=== PATIENT | male | born 1945 | race Caucasian/White ===

== ENCOUNTER 2016-08-18 15:16 | Outpatient (CLI) | payer MEDICARE, BC ==
--- NOTE | 2016-08-18 20:22 | RAD ---
LUMBAR SPINE THREE VIEWS: Date: 08-18-16 FINDINGS: A degenerated disc with disc space narrowing is seen at L5-S1. An MRI or CT would be needed to asse ss if there is any disc protrusion and neural impingement. Additionally, there is slight disc space narrowing at L4-5. Small anterior osteophytes are seen at most levels. There is some mild anterio r wedging of T11 and T12 vertebral bodies which is likely chronic. Facet arthritis is present at L4 and below for sure. On the AP view there is a rounded crescentic density to the left of the lower lumbar spine. A large aortic aneurysm is suspected, probably approaching 6 cm in size. It is difficult to see it exactly on the lateral view. Further studies are definitely needed, such as either ultrasound or CT to inv estigate it. IMPRESSION: 1. Probable large infrarenal abdominal aortic aneurysm. This may measure up to 6 cm in size. Ultr asound or CT required. 2. Degenerative disc disease at L5-S1 and disc space narrowing as well at L4-5. 3. Facet arthritis, particularly in the lower lumbar levels. Code T POS: HOME
== END 2016-08-18 15:17 | disposition home or self-care (01) ==
LOC: BURRAD 15:16
PROVIDERS: ATTEND Physician Assistant
DX: R20.8 Other disturbances of skin sensation (principal)
CPT/HCPCS: 72100

== ENCOUNTER 2016-08-18 15:25 | Outpatient (CLI) | payer MEDICARE, BC ==
[2016-08-18 15:46] LABS: #Basophils 0.1 thou/uL (0.0-0.2); #Eosinphils 0.3 thou/uL (0.0-0.7); #Lymphocytes 2.5 thou/uL (1.20-3.40); #Monocytes 0.9 thou/uL (0.11-0.59); #Neutrophils 6.4 thou/uL (1.40-6.50); %Basophils 0.9 % (0.0-1.0); %Eosinophils 2.5 % (0.0-10.0); Mean Platelet Volume 10.5 fL (7.4-10.4); Red Blood Cell (RBC) Count 4.93 mill/uL (4.70-6.10); White Blood Cell (WBC) Count 10.1 thou/uL (4.8-10.8)
[2016-08-18 15:57] LABS: ALT (SGPT) 13 U/L (0-55); AST (SGOT) 15 U/L (5-34); Alkaline Phosphatase 85 U/L (40-150); Anion Gap 14 mmol/L (10-20); BUN (Urea Nitrogen) 16 mg/dL (8.4-25.7); Bilirubin, Total 0.5 mg/dL (0.2-1.2); Calc. Creatinine Clearance 0 mL/min (70-130); Calcium 9.1 mg/dL (7.8-10.44); Carbon Dioxide 26 mmol/L (23-31); Chloride 105 mmol/L (98-107); Estimated GFR-MDRD 62; Globulin 2.9 g/dL (2.4-3.5); LDL Cholesterol, Calculated 148 mg/dL
== END 2016-08-18 15:26 | disposition home or self-care (01) ==
LOC: HPCALD 15:25
PROVIDERS: ATTEND Physician Assistant
DX: I70.90 Unspecified atherosclerosis (principal); R20.8 Other disturbances of skin sensation; I10 Essential (primary) hypertension
CPT/HCPCS: 36415; 72100; 80053; 80061; 84443; 85025

== ENCOUNTER 2016-08-20 14:33 | Outpatient (CLI) | payer MEDICARE, BC ==
--- NOTE | 2016-08-20 23:18 | ULT ---
ABDOMINAL ULTRASOUND 08/20/16 Ultrasonography of the abdomen was performed for evaluation of a possible abdominal aortic aneurysm that was questioned on a recent plain film of the lumbar spine. Documentary images and worksheets we re provided and reviewed. There is indeed an aneurysm of the distal abdominal aorta. It measures 4.0 cm in AP diameter and 4.6 cm in transverse diameter. Its length is approximately 7.7 cm. As best as I can tell, it does not e xtend beyond the bifurcation of the aorta. The liver size measures normal, though the total volume seems slightly generous. Internally, it appe ars normal. The gallbladder contains no stones or wall thickening. The common bile duct is borderlin e in size at 6 mm. The spleen is normal in size. The pancreas was mostly obscured by gas. The right kidney was 9.5 cm long and the left kidney was 10.0 cm. No mass or hydronephrosis was seen in either. IMPRESSION: 4.6 cm wide abdominal aortic aneurysm, lower aorta. POS: HOME
== END 2016-08-20 14:34 | disposition home or self-care (01) ==
LOC: BURULT 14:33
PROVIDERS: ATTEND Physician Assistant
DX: I71.4 Abdominal aortic aneurysm, without rupture (principal)
CPT/HCPCS: 76700

== ENCOUNTER 2016-09-25 10:19 | Outpatient (CLI) | payer MEDICARE, BC ==
[2016-09-25 11:57] LABS: Anion Gap 14 mmol/L (10-20); BUN (Urea Nitrogen) 17 mg/dL (8.4-25.7); Calc. Creatinine Clearance 0 mL/min (70-130); Calcium 9.7 mg/dL (7.8-10.44); Carbon Dioxide 27 mmol/L (23-31); Chloride 107 mmol/L (98-107); Estimated GFR-MDRD 60; Glucose 91 mg/dL (83-110); Sodium 143 mmol/L (136-145)
[2016-09-25 15:49] LABS: Band 0 % (5-11); Hemoglobin 16.2 g/dL (14.0-18.0); Lymphocytes 32 % (21-51); MDiff Complete? YES; Manual Diff?? YES; Mean Corpuscular HGB CONC 33.1 g/dL (32.0-36.0); Mean Corpuscular Hemoglobin 32.2 pg (27.0-31.0); Mean Corpuscular Volume 97.1 fL (80.0-94.0); Mean Platelet Volume 15.8 fL (7.4-10.4); Neutrophil 58 % (42-75); Platelet Count 104 thou/uL (130-400); RBC Distribution Width 12.1 % (11.5-14.5); Reactive Lymphocytes 0 % (0-10); Red Blood Cell (RBC) Count 5.03 mill/uL (4.70-6.10); White Blood Cell (WBC) Count 7.8 thou/uL (4.8-10.8)
[2016-09-25 15:50] LABS: Eosinophils 2 % (0-10); Large Platelets SLIGHT; Monocytes 8 % (0-10)
== END 2016-09-25 10:20 | disposition home or self-care (01) ==
LOC: BURLAB 10:19
PROVIDERS: ATTEND Thoracic Surgery (Cardiothoracic Vascular Surgery)
DX: Z01.812 Encounter for preprocedural laboratory examination (principal); I71.4 Abdominal aortic aneurysm, without rupture
CPT/HCPCS: 36415; 80048

== ENCOUNTER 2022-07-07 14:23 | Outpatient (CLI) | payer MEDICARE, BC | END 2022-07-07 14:24 | disposition home or self-care (01) | LOC: BURRAD 14:23 | PROVIDERS: ATTEND Physician Assistant | DX: R10.32 Left lower quadrant pain (principal); M16.12 Unilateral primary osteoarthritis, left hip ==

== ENCOUNTER 2025-03-18 18:24 | Emergency (ER) | payer MEDICARE | END 2025-03-18 20:24 | disposition home or self-care (01) | LOC: BURERS 18:24 | DX: S42.202A Unspecified fracture of upper end of left humerus, initial encounter for closed fracture (principal); K40.90 Unilateral inguinal hernia, without obstruction or gangrene, not specified as recurrent; I10 Essential (primary) hypertension; X50.9XXA Other and unspecified overexertion or strenuous movements or postures, initial encounter; Z87.891 Personal history of nicotine dependence | CPT/HCPCS: 99283 ==